=== PATIENT | male | born 1985 ===

== ENCOUNTER → 2020-08-01 13:32 | Outpatient (ROUT) | payer OTHER, SELFPAY ==
[2020-08-01 13:57] LABS: COVID19 -Nasal RAPID Negative (Negative)
== END ==
PROVIDERS: Visit Provider Family Medicine
DX: Z20.822 Contact with and (suspected) exposure to COVID-19 (principal)
CPT/HCPCS: 87635

== ENCOUNTER → 2021-03-12 13:31 | Outpatient (ROUT) | payer OTHER, SELFPAY ==
[2021-03-12 13:51] LABS: COVID19 -Nasal RAPID Negative (Negative)
== END ==
PROVIDERS: Visit Provider Family Medicine
DX: Z20.828 Contact with and (suspected) exposure to other viral communicable diseases (principal)
CPT/HCPCS: 87635